=== PATIENT | female | born 1955 | race Caucasian/White ===

== ENCOUNTER 2018-06-08 14:57 | Observation (INO) | payer OTHER ==
[2018-06-08] VITALS (8 sets, daily range): BP systolic 92–138; BP diastolic 56–87; PULSE 78–98; TEMP 97.8–98.2
[~2018-06-08] VITALS: Ht 167.6 cm; Wt 76.8 kg
[2018-06-08] MEDS ORDERED: LIPITOR 10MG10 MG PO (15:28)
[2018-06-08] MEDS ORDERED: CIPRO 250MG TA250 MG PO (15:34)
[2018-06-08] MEDS ORDERED: KLONOPIN 1MG1 MG PO (15:35)
[2018-06-08] MEDS ORDERED: PROZAC 20MG20 MG PO (15:36)
[2018-06-08] MEDS ORDERED: NEXIUM 40MG40 MG PO (15:36)
[2018-06-08] MEDS ORDERED: ZESTRIL 5MG5 MG PO (15:40)
[2018-06-08] MEDS ORDERED: MYRBETR50MG PO (15:41)
[2018-06-09 01:52] VITALS: BP 86/57; PULSE 88; TEMP 98.7
[2018-06-09 04:58] VITALS: BP 98/62; PULSE 98; TEMP 97.8
[2018-06-09 08:20] VITALS: BP 122/71; PULSE 78; TEMP 98.5
== END 2018-06-09 11:00 | disposition home or self-care (01) ==
LOC: EUO 14:57 → OB 16:21 → EUO 17:28 → OB 17:28
DX: N20.1 Calculus of ureter (principal); M19.90 Unspecified osteoarthritis, unspecified site; E78.00 Pure hypercholesterolemia, unspecified; I10 Essential (primary) hypertension; L43.9 Lichen planus, unspecified; J44.9 Chronic obstructive pulmonary disease, unspecified; K21.9 Gastro-esophageal reflux disease without esophagitis; F32.9 Major depressive disorder, single episode, unspecified; F41.9 Anxiety disorder, unspecified; Z90.710 Acquired absence of both cervix and uterus; Z88.1 Allergy status to other antibiotic agents; Z87.440 Personal history of urinary (tract) infections; Z87.891 Personal history of nicotine dependence; Z83.3 Family history of diabetes mellitus; Z80.8 Family history of malignant neoplasm of other organs or systems
CPT/HCPCS: C1769; C2617; G0378; J0360; J0690; J1100; J1885; J2270; J2704; J2765; J3010; J7120